=== PATIENT | male | born 1965 ===

== ENCOUNTER → 2021-02-16 | Outpatient (CLI) | payer MEDICARE, OTHER ==
[~2021-02-16] MED LIST: ABILIFY; CLON.5; CLOZ100; CLOZ25; ERGO400; ESCI20; LAMO100; OMEG1CAP30; SYNTHROID175 MCG
[2021-02-18 09:10] LABS: Stool Occult Bld Immuno 1 Negative (NEGATIVE)
== END | disposition home or self-care (01) ==
LOC: LAB SHORT 08:30 → LAB 08:30
PROVIDERS: Internal Medicine Gastroenterology
DX: Z12.11 Encounter for screening for malignant neoplasm of colon (principal); Z83.71 Family history of colonic polyps
CPT/HCPCS: 82274

== ENCOUNTER 2023-10-26 15:43 | Inpatient (IN) | payer MEDICARE, OTHER ==
[~2023-10-26] VITALS: Ht 182.9 cm; Wt 74.8 kg
[2023-10-26 16:31] LABS: BASOPHILS ABSOLUTE AUTO 0.02 K/mm3 (0.00-0.23); BASOPHILS PERCENT AUTO 0 % (0-2); EOSINOPHILS PERCENT AUTO 0 % (0-6); Hematocrit 36.5 % (37.0-53.0); Hemoglobin 12.5 g/dL (13.5-17.5); IMMATURE GRAN ABSOLUTE AUTO 0.11 K/mm3 (0.00-0.10); IMMATURE GRAN PERCENT AUTO 1 % (0-1); LYMPHOCYTES ABSOLUTE AUTO 0.45 K/mm3 (0.84-5.20); LYMPHOCYTES PERCENT AUTO 3 % (21-46); MONOCYTES PERCENT AUTO 7 % (4-13); Mean Corpuscular HGB 30.3 pg (26.0-34.0); Mean Corpuscular HGB Conc 34.2 g/dL (31.5-36.5); Mean Corpuscular Volume 89 fL (80-100); NEUTROPHILS ABSOLUTE AUTO 15.16 K/mm3 (1.96-9.15); NEUTROPHILS PERCENT AUTO 90 % (41-73); Platelet Count 226 K/mm3 (150-400); RDW Coefficient Variation 12.9 % (11.7-14.2); RDW Standard Deviation 42.1 fL (35.1-46.3); Red Blood Cell Count 4.12 M/mm3 (4.30-5.90); White Blood Cell Count 16.84 K/mm3 (4.00-11.30)
[2023-10-26 16:54] LABS: Albumin, Blood 3.3 g/dL (3.4-5.0); Bun/Creatinine Ratio 20.2 (12.0-20.0); Calcium, Blood 9.6 mg/dL (8.5-10.1); Creatinine, Blood 1.09 mg/dL (0.60-1.20); Globulin, Blood 3.3 g/dL (2.2-4.0); Potassium, Blood 3.6 mmol/L (3.5-5.5); Total Protein, Blood 6.6 g/dL (6.4-8.2)
[2023-10-26 20:24] LABS: Source, Urine Clean Catch
[2023-10-26 20:29] LABS: Appearance, Urine Clear (Clear); Bilirubin, Urine Neg (Neg); Blood, Urine Neg (Neg); Glucose Qualitative, Urine Neg (Neg); Ketones, Urine Neg (Neg); Leukocyte Esterase, Urine Neg (Neg); Nitrite, Urine Neg (Neg); Protein, Urine Neg (Neg); Specific Gravity, Urine 1.005 (1.003-1.022); Urobilinogen, Urine NORM (Normal); pH, Urine 6.5 (5.0-8.0)
[2023-10-26 21:14] LABS: Color, Urine Pale Yellow (P-Yellow)
[2023-10-26] MEDS ORDERED: Lamictal150 MG PO (21:34)
[2023-10-26] MEDS ORDERED: CELEXA10 MG PO (21:34)
[2023-10-26] MEDS ORDERED: EUTHYROX150 MC1 PO (21:35)
[2023-10-26] MEDS ORDERED: NS 1,000 ML IV SCH (23:50)
[2023-10-26] MEDS ORDERED: Azithromycin 500 MG in NS 250 ML IV ONE (23:50)
[2023-10-26] MEDS ORDERED: CefTRIAXone Sodium 1,000 MG in NS 50 ML IV ONE (23:50)
[2023-10-27] MEDS ORDERED: CloZAPine 100 MG Tab PO SCH ×2 (02:10→20:00)
[2023-10-27] MEDS ORDERED: Ondansetron HCl 2 MG / ML 2ML Vial IV PRN (02:10)
[2023-10-27] MEDS ORDERED: Acetaminophen 325 MG TABLET PO PRN (02:10)
[2023-10-27] MEDS ORDERED: Lactated Ringer's 1,000 ML IV SCH (03:00)
[2023-10-27 04:33] VITALS: BP 109/81
[2023-10-27 05:18] LABS: BASOPHILS ABSOLUTE AUTO 0.02 K/mm3 (0.00-0.23); BASOPHILS PERCENT AUTO 0 % (0-2); EOSINOPHILS PERCENT AUTO 0 % (0-6); Hematocrit 35.2 % (37.0-53.0); Hemoglobin 11.8 g/dL (13.5-17.5); IMMATURE GRAN ABSOLUTE AUTO 0.11 K/mm3 (0.00-0.10); IMMATURE GRAN PERCENT AUTO 1 % (0-1); LYMPHOCYTES ABSOLUTE AUTO 0.49 K/mm3 (0.84-5.20); LYMPHOCYTES PERCENT AUTO 3 % (21-46); MONOCYTES ABSOLUTE AUTO 1.03 K/mm3 (0.16-1.47); MONOCYTES PERCENT AUTO 6 % (4-13); Mean Corpuscular HGB 30.4 pg (26.0-34.0); Mean Corpuscular HGB Conc 33.5 g/dL (31.5-36.5); Mean Corpuscular Volume 91 fL (80-100); NEUTROPHILS ABSOLUTE AUTO 14.77 K/mm3 (1.96-9.15); NEUTROPHILS PERCENT AUTO 90 % (41-73); Platelet Count 253 K/mm3 (150-400); Red Blood Cell Count 3.88 M/mm3 (4.30-5.90); White Blood Cell Count 16.42 K/mm3 (4.00-11.30)
[2023-10-27 05:47] LABS: Albumin, Blood 3.2 g/dL (3.4-5.0); Albumin/Globulin Ratio 0.9 (0.8-1.8); Bilirubin, Total 0.7 mg/dL (0.1-1.0); Bun/Creatinine Ratio 18.5 (12.0-20.0); Calcium, Blood 9.2 mg/dL (8.5-10.1); Creatinine, Blood 0.98 mg/dL (0.60-1.20); Globulin, Blood 3.6 g/dL (2.2-4.0); Potassium, Blood 3.3 mmol/L (3.5-5.5); Total Protein, Blood 6.8 g/dL (6.4-8.2)
[2023-10-27] MEDS ORDERED: Levothyroxine Sodium 0.15 MG Tab PO SCH (06:00)
--- NOTE | 2023-10-27 06:46 | NUR ---
PT.WAS TRANSFERRED FROM ER TO MEDICAL FLOOR APPROXIMATELY 0300. RECEIVED REPORT FROM CHARGE COORDINATOR. AFTER HEALTH DIAGNOSTICS TEACHER ASSESSMENT, SPOKE WITH PT. HE DENIES SI/HI. HE REPORTS AUDITORY AND VISUAL HALLUCINATIONS. PT IS A&O X 4, AND COOPERATIVE WITH CARE. PER PT.REPORT, "MOM SAYS, IF YOU DON'T WORK, YOU DON'T EAT. FIRST IT WAS OK, NOW IM GETTING WEAKER." RN NOTIFIED.NO ACUTE EVENTS/DISTRESS NOTED/REPORTED DURING [id number]. WILL HAND OFF TO INCOMING SHIFT NURSE.
[2023-10-27 07:31] VITALS: BP 91/80
[2023-10-27] MEDS ORDERED: LamoTRIgine 100 MG Tab PO SCH ×2 (09:00→18:00)
[2023-10-27] MEDS ORDERED: Citalopram Hydrobromide 10 MG TAB PO SCH (09:00)
[2023-10-27] MEDS ORDERED: Docusate Sodium 100 MG Cap PO SCH (09:00)
[2023-10-27] MEDS ORDERED: Lactobacil 2-S.Thermo-Bifido 1 1 Cap PO SCH (09:00)
[2023-10-27] MEDS ORDERED: Sennosides 8.6 MG Tab PO SCH (09:00)
[2023-10-27] MEDS ORDERED: Vitamin B-12100 MCG PO (16:08)
[2023-10-27] MEDS ORDERED: THERA-D2000 UNIT PO (16:09)
[2023-10-27] MEDS ORDERED: THEREMS MULTI400 MCG PO (16:09)
[2023-10-27 16:13] VITALS: BP 113/72
--- NOTE | 2023-10-27 16:40 | NUR ---
SHIFT SUMMARY: NO EVENTS OR CHANGES WITH THE PATIENT THROUGHOUT THE SHIFT. HIS FAMILY BEEN AT BEDSIDE MAJORITY OF SHIFT. PATIENT DENIES ANY PAIN. HE HAS BEEN A 1 PERSON WITH FWW TO THE BATHROOM, NO BM ONLY GAS; VOIDING FINE. DR. REYNOLDS CAME BY AND CONSULTED, PUT HIM ON A CLEAR LIQUID DIET, NPO AT 0000 (10/28/23), AND STARTING BOWEL PREP FOR A SCOPE FOR TOMORROW AFTERNOON. PATIENT HASN'T EXPRESSED ANY HALLUCINATIONS DURING THE SHIFT EITHER OR HAS HAD ALTERED MENTAL STATUS, JUST CONFUSED WHEN IT CAME TO THE DATE. HE IS IN BED, FAMILY AT BED SIDE, CALL LIGHT WITHIN REACH, NO SIGNS OR SYMPTOMS OF DISTRESS. PLAN OF CARE ONGOING.
[2023-10-27] MEDS ORDERED: Peg/Electrolytes 4,000 ML BTL PO ONE (17:00)
--- NOTE | 2023-10-27 18:55 | NUR ---
WENT ENTERING PATIENT'S ROOM TO GIVE EVENING MEDS I NOTICED ON THE R SIDE OF THE PATIENT'S FACE THAT IT APPEARS SWOLLEN AND SLIGHTLY RED. I DO NOT RECALL NOTICING THIS DURING MY MORNING ASSESSMENT NOR DID THE FAMILY. DUE TO THE PATIENT BEING A POOR HISTORIAN HE WASN'T SURE EITHER. HE DOESN'T COMPLAIN OF THE AREA BEING SORE. RIGHT SIDE APPEARS SLIGHTLY DROOPED, BUT AFTER COMPLETING A NEURO ASSESSMENT PATIENT IS ABLE TO SMILE, STICK OUT TONGUE, AND RAISE EYE BROWS EQUALLY. DR. SIBLEY WAS NOTIFIED. SHE ADVISED TO [facility] IT. AREA WAS MARKED. DR. SIBLEY ALSO REQUEST THAT I VERIFY WITH FAMILY ON WHICH MEDICATION THEY THOUGHT WAS CAUSING THE CONSTIPATION. PER THIS MORNING AND THIS AFTERNOON FAMILY IS STILL STATING THE CITALOPRAM. DR. SIBLEY NOTIFIED.
[2023-10-27 19:44] VITALS: BP 112/74
[2023-10-28] VITALS (7 sets, daily range): BP systolic 93–122; BP diastolic 66–86
[2023-10-28 04:50] LABS: BASOPHILS ABSOLUTE AUTO 0.01 K/mm3 (0.00-0.23); BASOPHILS PERCENT AUTO 0 % (0-2); EOSINOPHILS PERCENT AUTO 0 % (0-6); Hematocrit 30.2 % (37.0-53.0); IMMATURE GRAN ABSOLUTE AUTO 0.03 K/mm3 (0.00-0.10); IMMATURE GRAN PERCENT AUTO 0 % (0-1); LYMPHOCYTES ABSOLUTE AUTO 0.84 K/mm3 (0.84-5.20); LYMPHOCYTES PERCENT AUTO 11 % (21-46); MONOCYTES PERCENT AUTO 10 % (4-13); Mean Corpuscular HGB 30.4 pg (26.0-34.0); Mean Corpuscular HGB Conc 33.1 g/dL (31.5-36.5); Mean Corpuscular Volume 92 fL (80-100); Mean Platelet Volume 9.7 fL (9.1-12.4); NEUTROPHILS ABSOLUTE AUTO 6.05 K/mm3 (1.96-9.15); NEUTROPHILS PERCENT AUTO 78 % (41-73); Platelet Count 258 K/mm3 (150-400); RDW Coefficient Variation 13.1 % (11.7-14.2); RDW Standard Deviation 44.6 fL (35.1-46.3); Red Blood Cell Count 3.29 M/mm3 (4.30-5.90); White Blood Cell Count 7.73 K/mm3 (4.00-11.30)
[2023-10-28 05:06] LABS: Bun/Creatinine Ratio 16.8 (12.0-20.0); Calcium, Blood 8.8 mg/dL (8.5-10.1); Creatinine, Blood 0.83 mg/dL (0.60-1.20); Potassium, Blood 3.3 mmol/L (3.5-5.5)
--- NOTE | 2023-10-28 05:48 | NUR ---
SHIFT SUMMARY 1:1 MEDICAL BUSINESS INTELLIGENCE ARCHITECT OBSERVATION WAS INITIATED AT THE BEGINNING OF THIS SHIFT. PT. APPEARED DROUSY AFTER HS MEDS WERE ADMINISTERED. PT. IS HAVING A PROCEDURE TODAY, AND HE DID FINISH [employer] AT 0330. PT. HAD MULTIPLE BM'S THAT TURNED INTO LIQUID AND HEPATOLOGIST IN COLOR. PT. WAS ASSISTED TO BED SIDE COMMODE T/O THIS SHIFT. PT. DID NOT REST WELL DURING THIS SHIFT. PT. HAS BEEN VERY COOPERATIVE, AND PLEASANT T/O THE LEAD CASTER HELPER. NO ACUTE EVENTS/DISTRESS NOTED DURING THIS SHIFT. WILL HANDOFF TO THE INCOMING SHIFT NURSE.
[2023-10-28] MEDS ORDERED: Peg/Electrolytes 4,000 ML BTL PO ONE (08:00)
[2023-10-28] MEDS ORDERED: CefTRIAXone Sodium 1,000 MG in NS 100 ML IV SCH (09:00)
[2023-10-28] MEDS ORDERED: Potassium Chl 20MEQ/Water100ML 100 ML IV STA (10:42)
--- NOTE | 2023-10-28 16:04 | NUR ---
SHIFT SUMMARY: PATIENT HAS COMPLETED 2 CONTAINERS OF BOWEL PREP; NOW COMPLETELY NPO AND AWAITING HIS COLONOSCOPY. HE WAS DROWSY EARLY THIS MORNING, BUT BECAME MORE ALERT THE DAY PROGRESSED. HIS STOOLS ARE LIQUID AND TRANSPARENT. THE RIGHT SIDE OF HIS FACE THAT WAS NOTED SWOLLEN AND RED 10/27/23 IS IMPROVED TODAY. PT CONTINUES TO DENY PAIN. HE DID C/O L SIDE EAR PAIN THIS MORNING THAT RESOLVED WITH TYLENOL. HIS FAMILY BEEN AT BEDSIDE MOST OF THE DAY ASSISTING IN PATIENT CARE. PATIENT HAS BEEN PLEASANT AND COOPERATIVE WITH CARE. RECEIVED A BAG OF IV POTASSIUM TODAY, CONTINUES TO GET IV ANTIBIOTICS AND FINISHING HIS LAST BAG OF LR. HE IS IN HIS BEDSIDE RECLINER, CALL LIGHT WITHIN REACH, FAMILY AT BEDSIDE, NO SIGNS OR SYMPTOMS OF DISTRESS. PLAN OF CARE ONGOING.
[2023-10-28] MEDS ORDERED: Lactated Ringer's 1,000 ML IV SCH (16:35)
--- NOTE | 2023-10-28 16:49 | NUR ---
IV IN RFA INFILTRATED. NEW IV PLACED LFA
[2023-10-28] MEDS ORDERED: Albuterol 2.5 MG/3 ML VIAL INH PRN (17:30)
[2023-10-28] MEDS ORDERED: Lidocaine HCl 1% 5 ML SYR INJ ONE ×2 (17:35)
[2023-10-28] MEDS ORDERED: Atropine Sulfate 0.1 MG/ML 10ML SYR IV PRN (17:35)
[2023-10-28] MEDS ORDERED: Midazolam HCl 1MG / ML 2ML Vial IV ONE (18:00)
[2023-10-28] MEDS ORDERED: propofoL 40 ML IV ONE (18:03)
--- NOTE | 2023-10-28 18:16 | NUR ---
10/28/23 1816 Emmanuel Germain HISTORY, CHART, MEDICATIONS AND ALLERGIES REVIEWED BEFORE START OF PROCEDURE. PATIENT CONFIRMS NPO STATUS AND AGREES WITH SCHEDULED PROCEDURE. 3-LEAD EKG REVIEWED WITH PHYSICIAN PRIOR TO START OF PROCEDURE. MONITOR INTACT WITH CONTINUOUS PULSE OXIMETRY,CAPNOGRAPHY, 3-LEAD EKG, INTERMITTENT BP. SUPPLEMENTAL O2 TO BE TITRATED THROUGHOUT PROCEDURE TO MAINTAIN O2 SATURATION ABOVE 90%.
[2023-10-28] MEDS ORDERED: propofoL 20 ML IV ONE (18:44)
[2023-10-29] MEDS ORDERED: NS 250 ML IV SCH ×2 (00:15→00:17)
[2023-10-29 03:01] VITALS: BP 119/72
[2023-10-29] MEDS ORDERED: Lamictal150 MG PO (03:14)
[2023-10-29] MEDS ORDERED: CLOZARIL PO (03:16)
[2023-10-29 04:54] LABS: BASOPHILS ABSOLUTE AUTO 0.01 K/mm3 (0.00-0.23); BASOPHILS PERCENT AUTO 0 % (0-2); EOSINOPHILS PERCENT AUTO 0 % (0-6); Hematocrit 29.7 % (37.0-53.0); Hemoglobin 9.9 g/dL (13.5-17.5); IMMATURE GRAN ABSOLUTE AUTO 0.02 K/mm3 (0.00-0.10); IMMATURE GRAN PERCENT AUTO 0 % (0-1); LYMPHOCYTES ABSOLUTE AUTO 0.63 K/mm3 (0.84-5.20); LYMPHOCYTES PERCENT AUTO 13 % (21-46); MONOCYTES ABSOLUTE AUTO 0.46 K/mm3 (0.16-1.47); MONOCYTES PERCENT AUTO 10 % (4-13); Mean Corpuscular HGB 30.2 pg (26.0-34.0); Mean Corpuscular HGB Conc 33.3 g/dL (31.5-36.5); Mean Corpuscular Volume 91 fL (80-100); Mean Platelet Volume 9.3 fL (9.1-12.4); NEUTROPHILS ABSOLUTE AUTO 3.71 K/mm3 (1.96-9.15); NEUTROPHILS PERCENT AUTO 77 % (41-73); Platelet Count 256 K/mm3 (150-400); RDW Coefficient Variation 13.2 % (11.7-14.2); RDW Standard Deviation 43.8 fL (35.1-46.3); Red Blood Cell Count 3.28 M/mm3 (4.30-5.90); White Blood Cell Count 4.83 K/mm3 (4.00-11.30)
[2023-10-29 05:43] LABS: Bun/Creatinine Ratio 9.8 (12.0-20.0); Calcium, Blood 8.4 mg/dL (8.5-10.1); Creatinine, Blood 0.82 mg/dL (0.60-1.20); Potassium, Blood 2.8 mmol/L (3.5-5.5)
[2023-10-29 07:16] VITALS: BP 109/72
--- NOTE | 2023-10-29 08:24 | NUR ---
recieved pt from colonoscopy, a little drowsy, resting with parents at bedside. was able to tolerate sips of water when awoke with no swallowing concerns. bed alarm on as pt does not use call light, fall precautiion education rendered, pt with scant loose bm, pm medications given once pt did not appear drowsy. kept comfortable slept through night no c/o pain. Area to Left side of temoral buccal area with trace redness to smaller in size as baseline. Fall precautions in place call light within reach.
[2023-10-29] MEDS ORDERED: Potassium Chloride 20 MEQ TabCR PO ONE (09:00)
[2023-10-29] MEDS ORDERED: DOCU100 PO (11:08)
[2023-10-29] MEDS ORDERED: DOXYCYCLINE HY100 M1 PO (11:11)
[2023-10-29] MEDS ORDERED: SENN187 PO (11:11)
[2023-10-29] MEDS ORDERED: VISBIOME 112.51 EACH PO (11:12)
[2023-10-29] MEDS ORDERED: AMOCLA875 PO (11:15)
--- NOTE | 2023-10-29 12:32 | NUR ---
DISCHARGE NOTE: PATIENT'S IV REMOVED SHOWERED AND GOT DRESSED; BELONGINGS COLLECTED. DISCUSSED DISCHARGE WITH PATIENT AND HIS PARENTS. PATIENT WAS WHEELED DOWN BY THE MOBILE QA TESTER AND HIS PARENTS VIA WHEELCHAIR. NO SIGNS OR SYMPTOMS OF DISTRESS DURING DISCHARGE.
== END 2023-10-29 12:24 | disposition home or self-care (01) | DRG 388 ==
LOC: ER 15:43 → MEDS 10-27 02:06 → ENPENDDIS 10-29 12:47
PROVIDERS: Internal Medicine; Student in an Organized Health Care Education/Training Program; Surgery; ADMIT Student in an Organized Health Care Education/Training Program
PROC: 0DJD8ZZ Inspection of Lower Intestinal Tract, Via Natural or Artificial Opening Endoscopic (ICD-10-PCS; principal; 2023-10-28 15:00)
DX: K56.609 Unspecified intestinal obstruction, unspecified as to partial versus complete obstruction (principal); J18.9 Pneumonia, unspecified organism; K59.09 Other constipation; F20.9 Schizophrenia, unspecified; K11.20 Sialoadenitis, unspecified; E87.6 Hypokalemia; D64.9 Anemia, unspecified; K63.89 Other specified diseases of intestine; Z90.49 Acquired absence of other specified parts of digestive tract; Z79.890 Hormone replacement therapy; Z79.899 Other long term (current) drug therapy; Z87.891 Personal history of nicotine dependence
CPT/HCPCS: 36415; 71046; 74177; 80048; 80053; 81003; 82140; 82947; 83605; 83690; 83735; 84145; 84443; 85025; 87449; 93005; 93010; 96365; 96367; 97112; 97116; 97162; 99285-25; A9270; J0456; J0696; J2250; J2704; J3480; J7030; J7050; J7120; Q9967

== ENCOUNTER → 2025-03-05 | Outpatient (CLI) | payer MEDICARE, OTHER ==
[~2025-03-05] MED LIST changes: +AMOCLA875 PO; +CELEXA10 MG PO; +CLOZARIL PO; +DOCU100 PO; +DOXYCYCLINE HY100 M1 PO; +EUTHYROX150 MC1 PO; +Lamictal150 MG PO; +SENN187 PO; +THERA-D2000 UNIT PO; +THEREMS MULTI400 MCG PO; +VISBIOME 112.51 EACH PO; +Vitamin B-12100 MCG PO
[2025-03-05 19:46] LABS: BASOPHILS ABSOLUTE AUTO 0.01 K/mm3 (0.00-0.23); BASOPHILS PERCENT AUTO 0 % (0-2); EOSINOPHILS ABSOLUTE AUTO 0.00 K/mm3 (0.00-0.68); EOSINOPHILS PERCENT AUTO 0 % (0-6); Hematocrit 38.0 % (37.0-53.0); Hemoglobin 12.5 g/dL (13.5-17.5); IMMATURE GRAN ABSOLUTE AUTO 0.02 K/mm3 (0.00-0.10); IMMATURE GRAN PERCENT AUTO 0 % (0-1); LYMPHOCYTES ABSOLUTE AUTO 0.99 K/mm3 (0.84-5.20); LYMPHOCYTES PERCENT AUTO 18 % (21-46); MONOCYTES ABSOLUTE AUTO 0.46 K/mm3 (0.16-1.47); MONOCYTES PERCENT AUTO 8 % (4-13); Mean Corpuscular HGB Conc 32.9 g/dL (31.5-36.5); Mean Corpuscular Volume 92 fL (80-100); NEUTROPHILS ABSOLUTE AUTO 4.17 K/mm3 (1.96-9.15); NEUTROPHILS PERCENT AUTO 74 % (41-73); NRBC ABSOLUTE 0.00 K/mm3 (0.00-0.02); NRBC Auto 0.0 /100 WBC (0.0-0.2); Platelet Count 266 K/mm3 (150-400); RDW Coefficient Variation 14.4 % (11.7-14.2); RDW Standard Deviation 48.8 fL (35.1-46.3)
== END | disposition home or self-care (01) ==
LOC: LAB SHORT 18:10 → LAB 18:10
PROVIDERS: Nurse Practitioner Psychiatric/Mental Health
DX: F20.0 Paranoid schizophrenia (principal)
CPT/HCPCS: 85025